=== PATIENT | female | born 1980 | race Caucasian/White ===

== ENCOUNTER → 2017-10-15 17:06 | Outpatient (CLI) | payer MEDICAID, SELFPAY ==
--- NOTE | 2017-10-15 17:13 | RAD_ITS ---
STUDY: X-RAY - PELVIS AND BILATERAL HIPS REASON FOR EXAM: Female, 37 years old. Pain TECHNIQUE: Radiological exam, hip, bilateral, with pelvis when performed; 3-4 views 5 views obtained. COMPARISON: None. FINDINGS: There is a non-specific bowel gas pattern. Normal visualized soft tissue structures. Normal bilateral iliac wings, sacroiliac joints and visualized sacrum. Normal bilateral superior and inferior pubic rami. Normal pubic symphysis. Normal bilateral ischial tuberosities. Normal visualized right femoral head. Normal right acetabulum. Normal right hip joint. Normal visualized left femoral head. Normal left acetabulum. Normal left hip joint. RAD/Hips B/L min 2 views w/ Pelvis IMPRESSION: Normal x-ray examination of the pelvis and bilateral hips. Electronically Signed: Kunal Sesay MD at 8:44 EDT , Service support ,
== END ==
PROVIDERS: Family Provider Family Medicine; PCP Family Medicine; Visit Provider Family Medicine
DX: M25.559 Pain in unspecified hip (principal)
CPT/HCPCS: 73521

== ENCOUNTER → 2018-01-08 09:30 | Outpatient (CLI) | payer OTHER, MEDICAID, SELFPAY ==
--- NOTE | 2018-01-08 09:34 | US_ITS ---
STUDY: ABDOMINAL ULTRASOUND - RIGHT UPPER QUADRANT REASON FOR VISIT: Female, 37 years old. Right upper quadrant pain TECHNIQUE: Ultrasound evaluation of the right upper quadrant was performed with real-time and static tovar-scale imaging. TECHNICAL QUALITY: Adequate. COMPARISON: None. FINDINGS: Liver: The liver measures 14.6 cm. There is normal echogenicity of the liver. The bile ducts are within normal limits. There is hepatic color flow. The direction of portal flow is hepatopetal. There is no demonstrated mass lesion. Gallbladder: Normal distended gallbladder. The gallbladder wall measures 3 mm. There is a negative sonographic Alvardao's sign. There is no pericholecystic fluid. There are no gallstones. Common Bile Duct (C.B.D.): The common bile duct measures 4 mm. Pancreas: Normal size of the head, body and obscured tail of the pancreas. There is normal echogenicity of the pancreas. There is no demonstrated pancreatic mass or cyst. Right Kidney: Normal size of the right kidney. The right kidney measures 10 x 4.5 x 4 cm. Normal renal cortex. The right cortex measures 1 cm. There is no demonstrated renal mass or cyst. There is no right hydronephrosis. US/Abdomen Limited IMPRESSION: Obscured pancreas tail by bowel gas. Otherwise normal limited abdominal ultrasound Electronically Signed: Aarti Alcaraz MD at 6:14 EDT , Service support ,
== END ==
PROVIDERS: Family Provider Family Medicine; PCP Family Medicine; Visit Provider Family Medicine
DX: R10.11 Right upper quadrant pain (principal)
CPT/HCPCS: 76705

== ENCOUNTER → 2018-01-23 12:47 | Outpatient (CLI) | payer OTHER, MEDICAID, SELFPAY ==
--- NOTE | 2018-01-23 12:50 | NM_ITS ---
CLINICAL: 37-year-old female with reported history of right upper quadrant abdominal pain. RADIONUCLIDE HEPATOBILIARY SCINTIGRAPHY COMPARISON: Abdominal ultrasound report 01/08/2018 FINDINGS: Following the intravenous administration of 5.2 mCi of 99m Tc Mebrofenin, hepatobiliary images reveal: 1. Relatively prompt and homogeneous radiopharmaceutical concentration is noted by a normal sized liver. No parenchymal defects are identified. 2. Gallbladder activity is identified at 10 minutes post radiopharmaceutical administration. 3. Small intestinal tract is observed at 45 minutes following tracer injection. 4. Washout of the radiopharmaceutical by the hepatic parenchyma appears qualitatively normal. The patient was administered a fatty meal (8 ounces BOOST-30 grams fat). The post fatty meal consumption gallbladder ejection fraction calculated at 31 minutes was noted to be 41.0 % (normal greater than 30%). NV/Hepatobilliary Img w/Pharm Int IMPRESSION: 1. NORMAL 99m Tc Mebrofenin hepatobiliary imaging examination with fatty meal ingestion. A. A gallbladder ejection fraction calculated to be greater than 30% following the administration of a consumed fatty meal makes the probability of functional hepatobiliary disease (gallbladder and/or sphincter of Oddi dyskinesia) and/or organic hepatobiliary disease (chronic acalculous cholecystitis and/or cystic duct syndrome) to be low. (Chavez and Jaspal, J Nucl Med 43: 1603, 2002). Electronically Signed: Uriel Stafford DO at 7:42 EDT Tel , Service support ,
== END ==
PROVIDERS: Family Provider Family Medicine; PCP Family Medicine; Referring Provider Family Medicine; Visit Provider Family Medicine
DX: R10.11 Right upper quadrant pain (principal)
CPT/HCPCS: 78227; A9537

== ENCOUNTER → 2018-02-17 16:33 | Outpatient (CLI) | payer OTHER, MEDICAID, SELFPAY ==
[2018-02-17 17:12] LABS: Absolute Lymphocyte Count 1.69 X10^3/ul (0.83-4.51); Absolute Neutrophil Count 3.4 X10^3/uL (2.0-7.7); Basophil# 0.02 X10^3/uL; Basophil% 0.4 % (0-1); Eosinophil# 0.13 X10^3/uL; Eosinophils% 2.3 % (0-5); Hematocrit 37.7 % (37-47); Hemoglobin 13.1 g/dl (12.0-15.0); Lymphocyte # 1.69 X10^3/ul (4.0); Lymphocyte % 30.5 % (19-41); Mean Corp Hgb Conc 34.7 g/gl (32-36); Mean Corpuscular Hgb 30.2 pg (27.0-32.0); Mean Corpuscular Volume 86.9 fL (81-99); Monocyte# 0.34 X10^3/uL; Monocyte% 6.1 % (0-10); Neutrophil # 3.36 X10^3/uL (2.7-7.7); Neutrophil % 60.5 % (47-70); Platelet Count 244 K/mm3 (150-450); RBC Distribution Width CV 12.9 % (11.6-14.6); RBC Distribution Width SD 39.8 fl (35.1-43.9); Red Blood Count 4.34 M/mm3 (4.2-5.4); White Blood Count 5.6 K/mm3 (4.4-11.0)
[2018-02-17 17:16] LABS: POSITIVE COUNT NO; POSITIVE DIFFERENTIAL NO; POSITIVE MORPHOLOGY NO
[2018-02-17 17:19] LABS: ALB/GLOB Ratio 1.1 RATIO (0.9-2.4); AST(SGOT) 12 U/L (15-37); Alanine Aminotransfer ALT/SGPT 20 U/L (13-56); Albumin, Serum 4.1 g/dL (3.2-5.0); Alkaline Phosphatase 62 U/L (45-117); Amylase 64 U/L (25-115); Anion Gap 10 (5-15); BUN 11 mg/dL (7-18); BUN/Creat Ratio 14.3 RATIO (10-20); Calcium,Total 9.1 mg/dL (8.5-10.1); Chloride 103 mmol/L (98-107); Creatinine, Serum 0.77 mg/dL (0.55-1.02); EST Glomerular Filtration Rate 89 mL/min (>60); Est Glom Filt Rate - Afr Amer 108 mL/min (>60); Globulin 3.8 g/dL (2.2-4.2); Glucose 90 mg/dL (74-106); Lipase 135 U/L (73-393); Potassium 3.9 mmol/L (3.5-5.1); Protein, Total 7.9 g/dL (6.4-8.2); Sodium Level 141 mmol/L (136-145)
[2018-02-21 11:35] LABS: V-Zoster Virus Acute IgM < 0.91 index (0.00-0.90)
== END ==
PROVIDERS: Family Provider Family Medicine; PCP Family Medicine; Referring Provider Surgery; Visit Provider Surgery
DX: R10.11 Right upper quadrant pain (principal)
CPT/HCPCS: 36415; 80053; 82150; 83690; 85025; 86787

== ENCOUNTER → 2018-02-21 17:42 | Outpatient (CLI) | payer OTHER, MEDICAID, SELFPAY ==
--- NOTE | 2018-02-21 17:43 | CT_ITS ---
STUDY: CT ABDOMEN AND PELVIS WITH CONTRAST REASON FOR EXAM: Female, 37 years old. Right upper quadrant pain and nausea RADIATION DOSAGE (If Supplied By Facility): CTDIvol = ( 12.39 ) mGy, DLP = ( 925.66 ) mGycm TECHNIQUE: Transaxial images were obtained from the dome of the diaphragm to the symphysis pubis with oral contrast. 100mL ml of Isovue 300 contrast was administered. Sagittal and coronal images were reconstructed. Individualized dose optimization techniques were used for this CT. COMPARISON: None. FINDINGS: The visualized lung bases are unremarkable. The visualized portions of the heart are within normal limits. 3 mm indeterminate hypodensity in the right hepatic lobe. Normal gallbladder and extrahepatic biliary system. Normal spleen. Normal pancreas. Normal bilateral adrenal glands. Normal right kidney. Normal left kidney. Normal visualized stomach. Normal small intestine. Normal colon. The appendix is visualized and appears normal. Normal abdominal aorta. Normal inferior vena cava. Normal retroperitoneum. Normal urinary bladder. Normal abdominal wall. Nondisplaced pars interarticularis defect on the right at the L5 level. CT/Abdomen/Pelvis WITH Contrast IMPRESSION: No CT evidence of acute abdominopelvic pathology. No evidence of appendicitis, acute intestinal pathology, or acute obstructive uropathy. Electronically Signed: Ifeanyi Sarah MD at 23:47 EDT Tel , Service support ,
== END ==
PROVIDERS: Family Provider Family Medicine; PCP Family Medicine; Referring Provider Surgery; Visit Provider Surgery
DX: R10.11 Right upper quadrant pain (principal)
CPT/HCPCS: 74177; Q9967

== ENCOUNTER 2018-02-27 05:32 | Day surgery (SDC) | payer OTHER, MEDICAID, SELFPAY ==
--- NOTE | 2018-02-26 | IMM_PTH ---
PATIENT: TANIYA LE LOC: [facility] U#:[id number] AGE/SX: 37/F ROOM: RE02/27/[address]: Dr. Sylvester Orlando MD : 1980 BED: DIS: 02/27/2018 SPEC #: [id number] RECD: 02/28/18 11:59 STATUS: SARAH YANCY #: [id number] VLADISLAV: 02/26/18 00:[address]: Sylvester Orlando DEPT: IMMUNOHISTOCHEMISTRY RECD BY: Deborah Mariscal ENTERED: 02/28/18 12:00 SP TYPE: IMMUNO OTHR DR: Dr. Pete Muñoz MD Tissues: B - Pylorus C - Stomach, NOS Procedures: H Pylori (initial) PHYSICIAN & INSTITUTION [place] [id number] SPECIMEN INFORMATION: Tissue Source: B - Pyloric channel biopsy, C - Antral biopsy Clinical Info: Flank pain Specimen Number: [id number] B & C CPT code: 95159 x2 METHODOLOGY: Deparaffinized sections of prefer/formalin-fixed tissue or PAP/DQ stained slides are incubated with monoclonal/polyclonal antibodies/oligonucleotide probes. Localization is made via biotin free immunoperoxidase method. Appropriate controls are performed and reacted as expected. Results on target cell population are indicated in the following table: RESULTS: ANTIBODY / CLONE RESULT Block B H Pylori (polyclonal) negative Block C H Pylori (polyclonal) negative These tests were developed and their performance characteristics determined by [facility]. They may not have been cleared or approved by the U.S. Food and Drug Administration. The FDA has determined that such clearance or approval is not necessary. INTERPRETATION: A. Pyloric channel, biopsy: Negative for Helicobacter pylori organisms. C. Antral biopsy: Negative for Helicobacter pylori organisms. SJ:tyrel 03/02/18
--- NOTE | 2018-02-26 | COLBX_PTH ---
PATIENT: TANIYA LE LOC: [facility] U#:[id number] AGE/SX: 37/F ROOM: RE02/27/[address]: Dr. Sylvester Orlando MD : 1980 BED: DIS: 02/27/2018 SPEC #: [id number] RECD: 02/26/18 07:17 STATUS: SARAH YANCY #: [id number] VLADISLAV: 02/26/18 00:[address]: Sylvester Orlando DEPT: SURGICAL PATHOLOGY RECD BY: Morris Montelongo ENTERED: 02/27/18 08:34 SP TYPE: COLON BX OTHR DR: Dr. Pete Muñoz MD Tissues: A - Duodenum, NOS B - Pylorus C - Gastric mucous membrane D - Esophageal mucous membrane E - Esophageal mucous membrane Procedures: Surgery Specimen Level IV HEADER OPERATION: EGD (MOD) PRE-OP DIAGNOSIS: Flank pain TISSUE SUBMITTED: A - Duodenal biopsy, B - Pyloric channel biopsy, C - Antral biopsy, D - Distal esophagus biopsy, E - Mid esophageal biopsy MICROSCOPIC DIAGNOSIS A. Duodenal biopsy: Fragments of duodenal mucosa with mild Jackeline gland hyperplasia. B. Pyloric channel, biopsy: Mild gastritis. C. Antral biopsy: Mild gastritis. D. Distal esophagus, biopsy: Fragments of squamous epithelium, no pathologic diagnosis. E. Mid esophageal biopsy: A fragment of squamous epithelium, no pathologic diagnosis. SJ:yvonne 02/28/18 COMMENT B & C. The results of immunohistochemistry for Helicobacter pylori will be reported separately ([id number]). MICROSCOPIC DESCRIPTION Slides are reviewed. B & C. The specimen shows fragments of gastric mucosa with chronic inflammatory cell infiltrates in the lamina propria consisting of lymphocytes and plasma cells, consistent with mild chronic gastritis. GROSS DESCRIPTION A - Received in fixative is one container labeled with the patient's name and designated duodenal biopsy. The specimen consists of multiple irregular fragments of light nobles soft tissue that in aggregate measure 1 x 0.3 x 0.1 cm. The specimen is totally submitted in one cassette. B - Received in fixative is one container labeled with the patient's name and designated pyloric channel biopsy. The specimen consists of one irregular fragment of light nobles soft tissue that measures 0.2 x 0.2 x 0.1 cm. The specimen is totally submitted in one cassette. C - Received in fixative is one container labeled with the patient's name and designated antral biopsy. The specimen consists of one irregular fragment of light nobles soft tissue that measures 0.3 x 0.3 x 0.1 cm. The specimen is totally submitted in one cassette. D - Received in fixative is one container labeled with the patient's name and designated distal esophagus biopsy. The specimen consists of multiple irregular fragments of light nobles soft tissue that in aggregate measure 1 x 0.3 x 0.1 cm. The specimen is totally submitted in one cassette. E - Received in fixative is one container labeled with the patient's name and designated mid esophageal biopsy. The specimen consists of one irregular fragment of light nobles soft tissue that measures 0.6 x 0.2 x 0.1 cm. The specimen is totally submitted in one cassette. / SJ:rg 02/27/18 TC:3 CPT: 68445 x5
[2018-02-27] VITALS (9 sets, daily range): BP systolic 103–144; BP diastolic 68–132; PULSE 65–79; RESP 16–18; TEMP 36.7–37.3; O2SAT 94–100; BMI 32.1
--- NOTE | 2018-02-27 06:51 | OP.ENDO_ITS ---
Patient Name: Samantha Raza Procedure Date: 02/27/2018 5:59 AM Date of : 1980 Age: 37 Procedure: Upper GI endoscopy Indications: Abdominal pain in the right upper quadrant Providers: Sylvester Orlando MD Referring MD: Sylvester Orlando MD Medicines: Midazolam 4 mg IV, Meperidine 100 mg IV Complications: No immediate complications. Procedure: Pre-Anesthesia Assessment: - Prior to the procedure, a History and Physical was performed, and patient medications and allergies were reviewed. The patient's tolerance of previous anesthesia was also reviewed. The risks and benefits of the procedure and the sedation options and risks were discussed with the patient. All questions were answered, and informed consent was obtained. Prior Anticoagulants: The patient has taken no previous anticoagulant or antiplatelet agents. ASA Grade Assessment: I - A normal, healthy patient. After reviewing the risks and benefits, the patient was deemed in satisfactory condition to undergo the procedure. After obtaining informed consent, the endoscope was passed under direct vision. Throughout the procedure, the patient's blood pressure, pulse, and oxygen saturations were monitored continuously. The gastroscope was introduced through the mouth, and advanced to the second part of duodenum. The upper GI endoscopy was accomplished without difficulty. The patient tolerated the procedure well. Moderate Sedation: Moderate (conscious) sedation was personally administered by the endoscopist. The following parameters were monitored: oxygen saturation, heart rate, blood pressure, and response to care. Total physician intraservice time was 15 minutes. Scope In: 6:34:02 AM Scope Out: 6:42:14 AM Total Procedure Duration Time 0 hours 8 minutes 12 seconds Findings: The Z-line was irregular and was found 35 cm from the incisors. Biopsies were taken with a cold forceps for histology. LA Grade A (one or more mucosal breaks less than 5 mm, not extending between tops of 2 mucosal folds) esophagitis was found 35 cm from the incisors. A medium-sized hiatal hernia was present. A single 5 mm sessile polyp with no stigmata of recent bleeding was found at the pylorus. Biopsies were taken with a cold forceps for histology. The entire examined stomach was normal. Biopsies were taken with a cold forceps for histology. The examined duodenum was normal. Biopsies were taken with a cold forceps for histology. Impression: - Z-line irregular, 35 cm from the incisors. Biopsied. - LA Grade A reflux esophagitis. - Medium-sized hiatal hernia. Mid esophageal biopsies obtained in addition to distal esophageal biopsies at the EG junction - A single gastric nodule within the pyloric channel. Biopsied. - Normal stomach. Biopsied of the antrum - Normal examined duodenum. Biopsied. Recommendation: - Resume previous diet. - Continue present medications. Procedure Code(s): --- Professional --- 06456, Esophagogastroduodenoscopy, flexible, transoral; with biopsy, single or multiple 13091, 59, Moderate sedation services provided by the same physician or other qualified health career development consultant performing the diagnostic or therapeutic service that the sedation supports, requiring the presence of an independent trained observer to assist in the monitoring of the patient's level of consciousness and physiological status; initial 15 minutes of intraservice time, patient age 5 years or older Diagnosis Code(s): --- Professional --- K22.8, Other specified diseases of esophagus K21.0, Gastro-esophageal reflux disease with esophagitis K44.9, Diaphragmatic hernia without obstruction or gangrene K31.7, Polyp of stomach and duodenum R10.11, Right upper quadrant pain CPT copyright 2017 [employer]. All rights reserved. The codes documented in this report are preliminary and upon corsets salesperson review may be revised to meet current compliance requirements. Sylvester Orlando MD 02/27/2018 6:50:37 AM This report has been signed electronically. Number of Addenda: 0 Note Initiated On: 02/27/2018 5:59 AM
== END 2018-02-27 07:47 | disposition home or self-care (01) ==
LOC: EN 05:32 → AC 05:34
PROVIDERS: Family Provider Family Medicine; PCP Family Medicine; Referring Provider Surgery; Visit Provider Surgery
PROC: (CPT 43239; principal; 2018-02-27 06:25)
DX: K31.7 Polyp of stomach and duodenum (principal); R10.11 Right upper quadrant pain; K44.9 Diaphragmatic hernia without obstruction or gangrene; K22.8 Other specified diseases of esophagus; K21.0 Gastro-esophageal reflux disease with esophagitis; K29.70 Gastritis, unspecified, without bleeding; Z98.51 Tubal ligation status; Z87.891 Personal history of nicotine dependence
CPT/HCPCS: 43239; 88305; 88342; 99152; 99153; J7120

== ENCOUNTER → 2018-12-23 17:55 | Outpatient (CLI) | payer OTHER, SELFPAY ==
[2018-12-26 12:07] LABS: HPV Reflexed? NOT INDICATED
== END ==
PROVIDERS: Family Provider Family Medicine; PCP Family Medicine; Referring Provider Nurse Practitioner Adult Health; Visit Provider Nurse Practitioner Adult Health
DX: Z01.419 Encounter for gynecological examination (general) (routine) without abnormal findings (principal)
CPT/HCPCS: 88175; G0145

== ENCOUNTER → 2018-12-25 07:07 | Outpatient (CLI) | payer OTHER, SELFPAY ==
[2018-02-27 06:00] VITALS: BMI 32.1
[2018-12-25 10:03] LABS: Absolute Lymphocyte Count 1.31 X10^3/uL (0.83-4.51); Absolute Neutrophil Count 2.5 X10^3/uL (2.0-7.7); Basophil# 0.03 X10^3/uL; Basophil% 0.7 % (0-1); Eosinophil# 0.12 X10^3/uL; Eosinophils% 2.8 % (0-5); Hematocrit 36.8 % (37-47); Hemoglobin 12.8 g/dL (12.0-15.0); Lymphocyte # 1.31 X10^3/ul (4.0); Lymphocyte % 30.9 % (19-41); Mean Corp Hgb Conc 34.8 g/dL (32-36); Mean Corpuscular Volume 86.4 fL (81-99); Mean Platelet Vol. 10.5 fl (6.2-12.0); Monocyte# 0.28 X10^3/uL; Monocyte% 6.6 % (0-10); NRBC Flagged by Analyzer 0 % (0-5); Neutrophil # 2.49 X10^3/uL (2.7-7.7); Neutrophil % 58.8 % (47-70); Platelet Count 209 K/mm3 (150-450); RBC Distribution Width CV 12.5 % (11.6-14.6); RBC Distribution Width SD 39.1 fl (35.1-43.9); Red Blood Count 4.26 M/mm3 (4.2-5.4); White Blood Count 4.2 K/mm3 (4.4-11.0)
[2018-12-25 10:21] LABS: Vitamin D,25 Hydroxy 18.4 ng/mL (29.95-100.01)
[2018-12-25 10:38] LABS: AST(SGOT) 10 U/L (15-37); Alanine Aminotransfer ALT/SGPT 17 U/L (13-56); Albumin, Serum 3.8 g/dL (3.2-5.0); Alkaline Phosphatase 70 U/L (45-117); Anion Gap 7 (5-15); BUN 15 mg/dL (7-18); BUN/Creat Ratio 16.3 RATIO (10-20); Calcium,Total 9.2 mg/dL (8.5-10.1); Chloride 106 mmol/L (98-107); Cholesterol 180 mg/dL (200); Creatinine, Serum 0.92 mg/dL (0.55-1.02); EST Glomerular Filtration Rate 72 mL/min (>60); Est Glom Filt Rate - Afr Amer 87 mL/min (>60); Globulin 3.8 g/dL (2.2-4.2); Glucose 83 mg/dL (74-106); High Density Lipoprotein 54 mg/dL; Potassium 3.6 mmol/L (3.5-5.1); Protein, Total 7.6 g/dL (6.4-8.2); Sodium Level 140 mmol/L (136-145); Thyroid Stim Hormone (TSH) 1.07 uIU/mL (0.358-3.74); Triglycerides 93 mg/dL; Very Low Density Lipoprotein 19 mg/dL (5-40)
== END ==
PROVIDERS: Family Provider Family Medicine; PCP Family Medicine; Referring Provider Nurse Practitioner Adult Health; Visit Provider Nurse Practitioner Adult Health
DX: E55.9 Vitamin D deficiency, unspecified (principal); R53.83 Other fatigue; M79.10 Myalgia, unspecified site; Z13.220 Encounter for screening for lipoid disorders
CPT/HCPCS: 36415; 80053; 80061; 82306; 83735; 84443; 85025

== ENCOUNTER → 2018-12-26 16:13 | Outpatient (CLI) | payer OTHER, SELFPAY ==
[2018-02-27 06:00] VITALS: BMI 32.1
--- NOTE | 2018-12-26 16:23 | US_ITS ---
HISTORY:LT LOWER MEDIAL GALLO LUMP Ultrasound of the left lower leg No priors Findings: Poorly defined area of slightly increased echogenicity within the subcutaneous tissue of the lower leg at the medial aspect measures approximate 3.9 x 3.0 x 1.1 cm. Minimally increased vascularity within this region. US/Ext Non Vasc Limited/Soft Tiss IMPRESSION: Poorly defined focal area of slightly increased echogenicity within the subcutaneous area of the left medial lower leg. This may represent a lipomatous lesion. I would recommend MRI with contrast for further evaluation if clinically indicated at 2009 Reported and signed by: Sherry Massey DO Electronically Signed: Sherry Massey DO at 20:08 EDT Tel , Service support ,
== END ==
PROVIDERS: Family Provider Family Medicine; PCP Family Medicine; Referring Provider Nurse Practitioner Adult Health; Visit Provider Nurse Practitioner Adult Health
DX: R22.42 Localized swelling, mass and lump, left lower limb (principal)
CPT/HCPCS: 76882

== ENCOUNTER 2019-01-01 15:51 | Emergency (ER) | payer OTHER, SELFPAY ==
[2019-01-01 15:52] VITALS: BP 156/86; PULSE 106; RESP 15; TEMP 36.6; O2SAT 100; BMI 32.2
--- NOTE | 2019-01-01 16:40 | ED.VIS.GEN ---
History of Present Illness Chief Complaint: Lower Extremity Injury Detail of Chief Complaint: Pain swelling distal anterior left leg Informant: Patient, Significant Other Onset: Weeks - Onset approximately 3 weeks ago Context: Gradual Onset Timing: Continuous Quality: Increasing discomfort in size since first noted Location: Anterior distal medial left leg Current Severity: Mild Maximum Severity: Moderate Worsened by: Patient Relieved by: Better with rest Associated Symptoms: No associated symptoms or history of trauma Narrative: Patient is a 38-year-old woman who presents with swelling and erythema distal medial anterior left leg that was first noted 3 weeks ago. The patient and her states it has increased in size and now is slightly red. She denies fever, chills or night sweats. She denies drainage. There is no known history of trauma. She is not taking aspirin, or any antiplatelet medicine or anticoagulant. She had a venous duplex study that was negative. She denies knee joint pain or ankle joint pain. Prior similar symptoms: Yes Recent Illness/Hospitalization: No - Past Medical History (1) No significant past medical history Status: Acute Past Medical History - Allergies and Home Meds Allergies/Adverse Reactions: Allergies amoxicillin [From Augmentin] Allergy (Mild, Verified 02/27/18 05:59) Unknown clavulanic acid [From Augmentin] Allergy (Mild, Verified 02/27/18 05:59) Unknown Sulfa (Sulfonamide Antibiotics) Allergy (Mild, Verified 02/27/18 05:59) Unknown sulfamethoxazole [From Bactrim] Allergy (Mild, Verified 02/27/18 05:59) Other trimethoprim [From Bactrim] Allergy (Mild, Verified 02/27/18 05:59) Other Primary Care Physician: Pete Muñoz MD [Primary Care Provider] - Prior records reviewed: Yes Past Medical History: None Lives: Spouse/ Significant Other Smoking Status: Former smoker Alcohol: Rare Drugs: None Review of Systems General: Denies: Chills, Fever, Malaise, Sweats Eyes: Denies: Visual changes - bilaterally, Blurred Vision - bilaterally, Diplopia Musculoskeletal: Reports: Swelling, Extremity Pain. Denies: Myalgias, Arthralgias, Neck pain, Back pain Skin: Denies: Rash, Wounds Neurological: Denies: Weakness, Parasthesia, Numbness Hematologic: Denies: Easy bruising, Easy bleeding Allergy: Denies: Uticaria, Swelling of the mouth Physical Exam Vital Signs/Narrative: Vital Signs Temp Pulse Resp BP Pulse Ox 01/01/19 15:52 97.9 F 106 H 15 156/86 H 100 General: Well nourished, Well developed, No Acute Distress Head: Normocephalic, Atraumatic Eyes: Perrl, EOMI ENT: Moist mucous membranes, No rhinorrhea Cardiovascular: Regular rate, Regular rhythm Respiratory: No distress Extremities: No edema, Tenderness, - - There is swelling of the dorsum of the foot. Swelling improves after sleep. There is a palpable bump medial distal anterior left leg. There is slight discoloration. Discolorations consistent with a contusion/hematoma. There is no induration, warmth, lymphangitis and there is no popliteal angle lymphadenopathy. DP and PT pulses are palpable. Dorsiflexion against resistance causes pain. Dorsi and plantar flexion passively causes no discomfort.. Negative for: Nontender Skin: No rash, Trauma. Negative for: Cyanosis, Diaphoresis, Jaundice Neurological: Alert, Oriented x3, Cranial nerves II-XII grossly intact, Normal Strength, Normal Sensation Psychological: Normal affect Diagnostic/Tx/Re-eval - Medical Decision Making Should not has a palpable bump distal medial anterior left leg. There is no evidence of infection. There is no concern for DVT. There was an outpatient venous duplex study that was negative. There is no joint effusion nor is her any pain with passive or active movement of the knee or ankle. Patient history and physical findings are consistent with dependent lymphedema and contusion/hematoma distal left leg. No further testing is indicated or warranted. ED Disposition - Plan for ED Patient: Disposition: Home or Assisted Living Diagnosis: Contusion of left lower leg, initial encounter Instructions: CONTUSION, Lower Extremity Referrals: Pete Muñoz MD [Primary Care Provider] - As Needed
== END 2019-01-01 17:04 | disposition home or self-care (01) ==
LOC: ED 16:49
PROVIDERS: Emergency Provider Emergency Medicine; Family Provider Family Medicine; PCP Family Medicine
DX: S80.12XA Contusion of left lower leg, initial encounter (principal); X58.XXXA Exposure to other specified factors, initial encounter; Y93.9 Activity, unspecified; Y92.89 Other specified places as the place of occurrence of the external cause; Y99.9 Unspecified external cause status; Z87.891 Personal history of nicotine dependence; Z88.0 Allergy status to penicillin; Z88.1 Allergy status to other antibiotic agents; Z88.2 Allergy status to sulfonamides
CPT/HCPCS: 99282

== ENCOUNTER → 2019-02-23 15:48 | Outpatient (CLI) | payer OTHER, SELFPAY ==
[2019-02-23 17:55] LABS: Vitamin D,25 Hydroxy 61.2 ng/mL (29.95-100.01)
== END ==
PROVIDERS: Family Provider Family Medicine; PCP Family Medicine; Referring Provider Nurse Practitioner Adult Health; Visit Provider Nurse Practitioner Adult Health
DX: E55.9 Vitamin D deficiency, unspecified (principal)
CPT/HCPCS: 36415; 82306

== ENCOUNTER → 2020-03-16 15:45 | Outpatient (CLI) | payer OTHER, SELFPAY ==
--- NOTE | 2020-03-16 15:55 | RAD_ITS ---
STUDY: X-RAY CHEST REASON FOR EXAM: Female, 39 years old. erythema nodosum, check for mediastinal LAD TECHNIQUE: Frontal and lateral views COMPARISON: None. FINDINGS: The lungs are clear and expanded. There is no demonstrated pleural abnormality. Normal size heart. Normal mediastinum and liliana. Normal visualized pulmonary arteries. Normal visualized aortic arch and descending thoracic aorta. Normal visualized thoracic spine. Normal visualized ribs, clavicles, and shoulders. There is no demonstrated abnormality of the visualized soft tissue structures of the upper abdomen. RAD/Chest PA and Lateral IMPRESSION: Normal x-ray examination of the chest. Electronically Signed: Milton Benson DO at 22:02 EST Tel [phone], Service support ,
[2020-03-16 17:32] LABS: Basophil# 0.07 X10^3/uL; Basophil% 0.8 % (0-1); Eosinophil# 0.19 X10^3/uL; Eosinophils% 2.2 % (0-5); Hematocrit 35.3 % (37-47); Hemoglobin 12.1 g/dL (12.0-15.0); Lymphocyte % 42.6 % (19-41); Mean Corp Hgb Conc 34.3 g/dL (32-36); Mean Corpuscular Hgb 29.5 pg (27.0-32.0); Mean Corpuscular Volume 86.1 fL (81-99); Mean Platelet Vol. 10.2 fl (6.2-12.0); Monocyte# 0.57 X10^3/uL; Monocyte% 6.7 % (0-10); NRBC Flagged by Analyzer 0 % (0-5); Neutrophil # 4.01 X10^3/uL (2.7-7.7); Neutrophil % 47.5 % (47-70); Platelet Count 322 K/mm3 (150-450); RBC Distribution Width CV 12.2 % (11.6-14.6); RBC Distribution Width SD 38.4 fl (35.1-43.9); White Blood Count 8.5 K/mm3 (4.4-11.0)
[2020-03-16 17:44] LABS: Erythrocyte Sedimentation Rate 14 mm/hr (0-20)
[2020-03-16 18:12] LABS: CRP 3.82 mg/L (0.0-3.0); Thyroid Stim Hormone (TSH) 2.21 uIU/mL (0.358-3.74)
[2020-03-21 20:03] LABS: ANTINUCLEAR ANTIBODIES DIRECT Negative (Negative)
[2020-03-21 20:07] LABS: QNTFERON TB Mitogen Value > 10.00 IU/mL (.); QNTFERON TB Nil Value 0.06 IU/mL (.); QNTFERON TB1+ Ag Value 0.08 IU/mL (.); QNTFERON TB2+ Ag Value 0.07 IU/mL (.)
[2020-03-21 20:12] LABS: ASO Titer 71.3 IU/mL (0.0-200.0); QNTIFERON TB Positive Criteria Negative (Negative)
== END ==
PROVIDERS: PCP Family Medicine; Referring Provider Family Medicine; Visit Provider Family Medicine
DX: L52 Erythema nodosum (principal); R53.83 Other fatigue
CPT/HCPCS: 36415; 71046; 84443; 85025; 85652; 86038; 86060; 86140; 86225; 86235; 86480

== ENCOUNTER → 2020-05-26 15:53 | Outpatient (CLI) | payer OTHER, SELFPAY ==
[2020-05-26 17:52] LABS: Erythrocyte Sedimentation Rate 9 mm/hr (0-30)
[2020-05-26 18:03] LABS: CRP 3.01 mg/L (0.0-3.0)
[2020-05-30 20:07] LABS: Endomysial Antibody IgA Negative (Negative)
[2020-05-30 21:45] LABS: Immunoglobulin A 147 mg/dL (87-352); t-Transglutaminase IgA <2 U/mL (0-3)
== END ==
PROVIDERS: PCP Family Medicine; Referring Provider Internal Medicine Gastroenterology; Visit Provider Internal Medicine Gastroenterology
DX: R10.9 Unspecified abdominal pain (principal)
CPT/HCPCS: 36415; 82784; 83516; 85652; 86140; 86255

== ENCOUNTER → 2022-02-05 | Outpatient (CLI) | payer BC, SELFPAY ==
[2022-02-05 07:31] LABS: Absolute Lymphocyte Count 1.64 X10^3/uL (0.83-4.51); Absolute Neutrophil Count 3.1 X10^3/uL (2.0-7.7); Basophil# 0.03 X10^3/uL; Basophil% 0.6 % (0-1); Eosinophil# 0.19 X10^3/uL; Eosinophils% 3.6 % (0-5); Hematocrit 36.8 % (37-47); Hemoglobin 12.6 g/dL (12.0-15.0); Lymphocyte # 1.64 X10^3/ul (0.83-4.51); Lymphocyte % 30.8 % (19-41); Mean Corp Hgb Conc 34.2 g/dL (32-36); Mean Corpuscular Hgb 29.2 pg (27.0-32.0); Mean Corpuscular Volume 85.2 fL (81-99); Mean Platelet Vol. 9.9 fl (6.2-12.0); Monocyte# 0.32 X10^3/uL; NRBC Flagged by Analyzer 0 % (0-5); Neutrophil # 3.13 X10^3/uL (2.7-7.7); Neutrophil % 58.6 % (47-70); Platelet Count 243 K/mm3 (150-450); RBC Distribution Width CV 12.7 % (11.6-14.6); RBC Distribution Width SD 38.7 fl (35.1-43.9); Red Blood Count 4.32 M/mm3 (4.2-5.4); White Blood Count 5.3 K/mm3 (4.4-11.0)
[2022-02-05 08:35] LABS: Vitamin D,25 Hydroxy 26.2 ng/mL
[2022-02-05 08:44] LABS: ALB/GLOB Ratio 0.9 RATIO (0.9-2.4); AST(SGOT) 13 U/L (15-37); Alanine Aminotransfer ALT/SGPT 16 U/L (13-56); Albumin, Serum 3.6 g/dL (3.2-5.0); Alkaline Phosphatase 68 U/L (45-117); Anion Gap 10 (5-15); BUN 14 mg/dL (7-18); Calcium,Total 9.2 mg/dL (8.5-10.1); Chloride 105 mmol/L (98-107); Cholesterol 186 mg/dL (200); Creatinine, Serum 0.82 mg/dL (0.55-1.02); EST Glomerular Filtration Rate 81 mL/min (>60); Est Glom Filt Rate - Afr Amer 97 mL/min (>60); Ferritin 12 ng/mL (8-252); Glucose 94 mg/dL (74-106); High Density Lipoprotein 56 mg/dL; Iron 61 ug/dL (50-170); Iron Binding Capacity,Total 324 ug/dL (250-450); Potassium 3.8 mmol/L (3.5-5.1); Protein, Total 7.6 g/dL (6.4-8.2); Sodium Level 140 mmol/L (136-145); Triglycerides 87 mg/dL; Very Low Density Lipoprotein 17 mg/dL (5-40)
[2022-02-05 15:10] LABS: Thyroid Stim Hormone (TSH) 1.85 uIU/mL (0.358-3.74)
[2022-02-05 15:19] LABS: Vitamin B12 267 pg/mL (211-911)
== END | disposition home or self-care (01) ==
LOC: LAB 06:30
PROVIDERS: PCP Family Medicine; Referring Provider Family Medicine; Visit Provider Family Medicine
DX: N95.1 Menopausal and female climacteric states (principal); R53.83 Other fatigue; E78.5 Hyperlipidemia, unspecified; R20.0 Anesthesia of skin; R20.2 Paresthesia of skin
CPT/HCPCS: 36415; 80053; 80061; 82306; 82330; 82607; 82728; 83540; 83550; 84443; 85025